=== PATIENT | male | born 1985 | race Caucasian/White ===

== ENCOUNTER 2019-06-26 13:26 | Emergency (ER) | payer MEDICARE, MEDICAID ==
--- OUTSIDE RECORDS SUMMARY | 2019-06-26 13:36 | XMS REPORT ---
:1985 Author Organization [facility] Care Team Providers Name Role Phone MCKAYLA JACKSON Primary Care Physician Unavailable Allergies, Adverse Reactions, Alerts Allergy Code CodeSystem Reaction Severity Criticality Status Start Substance Date Moderate Medications Medication Medication Medication Start Stop Route Dose Status Fill Code CodeSystem Date Date Instructions RxNorm Problems Problem Code CodeSystem Alternate Alternate Start End Status Narrative Name Code CodeSystem Date Date Bipolar 90114836 SNOMED-CT 2018-08 Active disorder, - in full remission , most recent episode manic Relevant diagnostic tests/laboratory data Narrative No Information Procedures Procedure Code CodeSystem Target Date of Status Service Device Device Device Name Site Procedure Delivery Code Name UID Location Comprehensiv 878343 SNOMED-CT () 2018-11-15 complete Mental e medication 0 d Health- services, [place] [address] [place], [place], [id number] Comprehensiv [id number] SNOMED-CT () 2018-12-28 complete Mental e medication 0 d Health- services, [place] [address] [place], [place], [id number] Comprehensiv 067970 SNOMED-CT () 2019-01-25 complete Mental e medication 0 d Health- services, [place] [address], [place], [id number] Comprehensiv 351852 SNOMED-CT () 2018-09-15 complete Mental e medication 0 d Health- services, [place] [address], [place], [id number] Comprehensiv 907986 SNOMED-CT () 2018-10-13 complete Mental e medication 0 d Health- services, [place] [address], [place], [id number] Comprehensiv 401730 SNOMED-CT () 2019-03-06 complete Mental e medication 0 d Health- services, [place] [address], [place], [id number] [id number] Comprehensiv 881416 SNOMED-CT () 2019-04-09 complete Mental e medication 0 d Health- services, [place] [address] [place], [place], [id number] [phone] Comprehensiv 588235 SNOMED-CT () 2019-05-23 complete Mental e medication 0 d Health- services, [place] [address], [place], [id number] [phone] [place] [id number] SNOMED-CT () 2019-03-06 complete Mental other 7 d Health- outpatient [place] visit for [address], [facility], established [phone] patient, [id number] which requires at least 2 of these 3 wang components: An expanded problem focused history; An expanded problem focused examination; Medical [facility] Office [facility] [id number] SNOMED-CT () 2018-11-17 complete Mental other 6 d Health- outpatient [place] visit for [address], [facility], established [phone] patient, [id number] which requires at least 2 of these 3 wang components: A problem focused history; A problem focused examination; [facility] medical decision making. Counselin Encounters/Encounter Diagnoses Encounter Name Encounter Diagnosis Diagnosis Diagnosis Date of Service Code Code Name CodeSystem Diagnosis Delivery Location [place] [id number] Bipolar SNOMED-CT 2019-05-23 Behavioral Medication disorder, Health Administration in full Clinic [address] with Monitoring & remission, [facility] most recent [address], episode [place], [place], manic [phone] Vital Signs No Information Social History Element Description Description Start End Code CodeSystem AdditionalInfo Date Date SexAssignedAtBirth Male 1986-0 M AdministrativeGender 4-14 Hospital Discharge Instructions Reason For Referral Medical Equipment FDA Assessments
--- NOTE | 2019-06-26 15:48 | UC ---
Dental HPI - HPI Summary HPI Summary: 33-year-old male presenting with toothache 2 days and left-sided facial swelling that he states began late this morning. Describes pain as aching and 4 /10. Denies any drainage or bleeding from gums. Denies decreased range of motion of jaw. Denies fevers. No chills. Denies changes in appetite and fluid intake. Denies nausea and vomiting. States he used Orajel and Tylenol yesterday without relief. Denies anything like this in the past. Does note cavities throughout his teeth. - History of Current Complaint Chief Complaint: UCDentalProblem Stated Complaint: GUM/FACIAL SWELLING Hx Obtained From: Patient Pain Intensity: 3 Pain Scale Used: 0-10 Numeric - Allergies/Home Medications Allergies/Adverse Reactions: Allergies Allergy/AdvReac Type Severity Reaction Status Date / Time mushroom Allergy Difficulty Verified 06/26/19 13:41 Swallowing Home Medications: Home Medications ARIPiprazole [Abilify Maintena] 1 dose IM MONTHLY 06/26/19 [History Confirmed ] PMH/Surg Hx/FS Hx/Imm Hx Psychological History: Bipolar Disorder - Surgical History Surgical History: Yes Surgery Procedure, Year, and Place: hernia repair, fx clavical - Family History Known Family History: Positive: Non-Contributory - Social History Alcohol Use: Occasionally Substance Use Type: Prescribed Substance Use Comment - Amount & Last Used: yesterday Smoking Status (MU): Heavy Every Day Tobacco Smoker Type: Cigarettes Household Exposure Type: Cigarettes - Immunization History Most Recent Influenza Vaccination: Unable to recall Most Recent Tetanus Shot: Unable to recall Most Recent Pneumonia Vaccination: NA Review of Systems All Other Systems Reviewed And Are Negative: Yes Constitutional: Positive: Chills. Negative: Fever Skin: Positive: Negative ENT: Positive: Dental Pain - Left upper gum and tooth pain Respiratory: Positive: Negative Cardiovascular: Positive: Negative Gastrointestinal: Positive: Negative. Negative: Vomiting, Nausea Musculoskeletal: Positive: Edema - L side facial swelling since this morning. Negative: Arthralgia, Decreased ROM Neurological: Positive: Negative Physical Exam Triage Information Reviewed: Yes Appearance: Well-Appearing, No Pain Distress, Well-Nourished Vital Signs: Initial Vital Signs Temp 96.2 F 06/26/19 13:38 Pulse 119 06/26/19 13:38 Resp 18 06/26/19 13:38 BP 141/93 06/26/19 13:38 Pulse Ox 98 06/26/19 13:38 Vital Signs Reviewed: Yes Eyes: Positive: Conjunctiva Clear ENT: Positive: Hearing grossly normal, Pharynx normal, TMs normal, Dental tenderness - left upper teeth, Uvula midline. Negative: Tonsillar swelling, Tonsillar exudate, Trismus, Muffled voice, Hoarse voice Dental: Positive: Percussion Tenderness @ - L upper teeth, Gross Decay/Caries @ - throughout, Cellulitis @ - upper and lower left gingiva. Negative: Cervical Lymphadenopathy, Bleeding Neck: Positive: Supple, Nontender, No Lymphadenopathy Respiratory Exam: Normal Respiratory: Positive: Lungs clear, Normal breath sounds, No respiratory distress Cardiovascular Exam: Other - regular rhythm Cardiovascular: Positive: Tachycardia Musculoskeletal: Positive: ROM Intact - full ROM mandible Neurological: Positive: Alert Psychological: Positive: Age Appropriate Behavior Skin Exam: Normal - erythema noted of L upper lip, cheek, extending to lower left eyelid Dental Complaint Course/Dx - Course Course Of Treatment: Patient presenting with L side toothache x2 days and facial swelling since this morning. Patient with significant facial swelling, dental tenderness, facial erythema, pain, and tachycardia. I instructed the patient to go to the emergency room for further evaluation and treatment. Patient voiced understanding and agreed with treatment plan. Patient states his friend is with him and will drive him there after leaving here. Patient stable upon departure. - Differential Dx/Diagnosis Differential Diagnosis/Dx: Dental Abscess, Dental Caries, Fractured Tooth, Odontogenic Pain Provider Diagnosis: Pain due to dental caries, Left facial swelling Discharge ED - Sign-Out/Discharge Documenting (check all that apply): Patient Departure All imaging exams completed and their final reports reviewed: No Studies - Discharge Plan Condition: Stable Disposition: HOME-RECOMMEND TO ED Patient Education Materials: Dental Abscess (ED) Referrals: Ousmane Felton MD [Primary Care Provider] - Additional Instructions: The provider that evaluated you today thinks that you need additional testing that can be completed the emergency department. It is recommended that you go directly to emergency department for further evaluation. This evaluation included blood work or imaging. This testing will be directed and decided by the provider that evaluates you at the emergency department. If pain becomes worse, you feel lightheaded, you have uncontrolled vomiting, or you have any other concerns while you are being driven to emergency department as recommended to pullover and contact 911. - Billing Disposition and Condition Condition: STABLE Disposition: Home-Recommend to ED - Attestation Statements Provider Attestation: I was available for consult. This patient was seen by the HUMBERTO. The patient was not presented to, seen by, or examined by me. -Karine
[2019-06-26 15:59] VITALS: BP 140/93
== END 2019-06-26 16:10 | disposition home health service (06) ==
LOC: UCEAST 13:26
DX: K08.89 Other specified disorders of teeth and supporting structures (principal); R22.0 Localized swelling, mass and lump, head; F31.9 Bipolar disorder, unspecified; F17.210 Nicotine dependence, cigarettes, uncomplicated; Z79.899 Other long term (current) drug therapy; Z91.018 Allergy to other foods; K02.9 Dental caries, unspecified; L03.211 Cellulitis of face
CPT/HCPCS: 99202; G0463

== ENCOUNTER 2019-06-26 16:21 | Emergency (ER) | payer MEDICARE, MEDICAID ==
[2019-06-26] MEDS ORDERED: NS 0.9% 1000 ML** 1,000 ML IV ONE (17:36)
[2019-06-26] MEDS ORDERED: Ketorolac INJ* 30 MG/ML 1 ML VIAL IV PUSH ONE (17:36)
[2019-06-26] MEDS ORDERED: Clindamycin 600 MG/D5W BAG(*) 600 MG/50 ML BAG IV ONE (17:36)
--- NOTE | 2019-06-26 17:50 | ED ---
Throat Pain/Nasal Congestion - HPI Summary HPI Summary: 33-year-old male presents with dental pain for the past 3 days. He states he woke up with swelling. swelling extends from left upper jaw to his eye. He denies any pain with eye movement. No fevers or chills. no difficulty swallowing. No chest pain or shortness of breath. He does not currently have a dentist. He states where it hurts is where his tooth has been removed. he has a history of Bipolar. Has been taking Tylenol for pain. - History of Current Complaint Chief Complaint: EDDentalPain Time Seen by Provider: 06/26/19 17:28 - Allergies/Home Medications Allergies/Adverse Reactions: Allergies Allergy/AdvReac Type Severity Reaction Status Date / Time mushroom Allergy Difficulty Verified 06/26/19 13:41 Swallowing PMH/Surg Hx/FS Hx/Imm Hx Endocrine/Hematology History: Denies: Hx Diabetes, Hx Thyroid Disease Cardiovascular History: Denies: Hx Hypertension Respiratory History: Denies: Hx Asthma, Hx Chronic Obstructive Pulmonary Disease (COPD) GI History: Denies: Hx Ulcer Sensory History: Reports: Hx Contacts or Glasses Opthamlomology History: Reports: Hx Contacts or Glasses Psychiatric History: Reports: Hx Inpatient Treatment, Hx Community Mental Health Tx, Hx Bipolar Disorder, Hx Substance Abuse Denies: Hx Eating Disorder, Hx of Violent Episodes Against Others - Surgical History Surgery Procedure, Year, and Place: hernia repair, fx clavical Infectious Disease History: No Infectious Disease History: Denies: Hx Hepatitis, Hx Human Immunodeficiency Virus (HIV), Traveled Outside the [place] in Last 30 Days - Family History Known Family History: Positive: Non-Contributory - Social History Alcohol Use: Occasionally Substance Use Type: Reports: Prescribed Substance Use Comment - Amount & Last Used: yesterday Smoking Status (MU): Heavy Every Day Tobacco Smoker Type: Cigarettes Review of Systems Negative: Fever Positive: Dental Pain Negative: Chest Pain Negative: Shortness Of Breath All Other Systems Reviewed And Are Negative: Yes Physical Exam Triage Information Reviewed: Yes Vital Signs On Initial Exam: Initial Vitals Temp Pulse Resp BP Pulse Ox 97.5 F 121 18 108/82 95 06/26/19 16:21 06/26/19 16:21 06/26/19 16:21 06/26/19 16:21 06/26/19 16:21 Vital Signs Reviewed: Yes Appearance: Positive: Well-Appearing Skin: Positive: Warm, Dry Eyes: Positive: Normal, EOMI, LOU, Conjunctiva Clear ENT: Positive: Pharynx normal, TMs normal Dental: Positive: Other - swelling noted to left side of face extending from mandibule to below the eye, erythema to gum left upper jaw Neck: Positive: Supple, Nontender, No Lymphadenopathy Respiratory/Lung Sounds: Positive: Clear to Auscultation, Breath Sounds Present Cardiovascular: Positive: Normal, RRR Abdomen Description: Positive: Nontender, Soft Bowel Sounds: Positive: Present Musculoskeletal: Positive: Normal Neurological: Positive: Normal Psychiatric: Positive: Normal Procedures - Sedation Patient Received Moderate/Deep Sedation with Procedure: No Diagnostics - Vital Signs Vital Signs Temp Pulse Resp BP Pulse Ox 06/26/19 16:21 97.5 F 121 18 108/82 95 - Laboratory Result Diagrams: 06/26/19 17:55 06/26/19 17:55 Lab Statement: Any lab studies that have been ordered have been reviewed, and results considered in the medical decision making process. - CT facial CT Interpretation Completed By: Radiologist Summary of CT Findings: IMPRESSION: 1. There is subcutaneous swelling and fat stranding involving the left face consistent with cellulitis, no visible soft tissue abscess. 2. There is mild left submandibular lymphadenopathy. 3. There is poor dentition with multiple missing teeth, multiple dental cavities and multifocal periodontal disease. Re-Evaluation - Re-Evaluation First Eval Re-Evaluation Time: 20:02 Change: Improved Comment: swelling decreased after toradol EENT Course/Dx - Course Course Of Treatment: 33-year-old male presents with dental pain for the past 3 days. He states he woke up with swelling. swelling extends from left upper jaw to his eye. He denies any pain with eye movement. No fevers or chills. no difficulty swallowing. No chest pain or shortness of breath. He does not currently have a dentist. He states where it hurts is where his tooth has been removed. he has a history of Bipolar. Has been taking Tylenol for pain. On exam has edema noted to left side of face from his jaw to his eye. Extraocular movements intact without pain. has erythema to left upper jaw. We'll get CT. CT shows cellulitis with no abscess. wbc normal. gave dose of clindamycin, will discharge on clindamycin. told follow up with dentist and primary. warned signs to return to ED such as pain with eye movement or if swelling is around entire eye. patient understand and agrees with plan. - Differential Diagnoses Differential Diagnoses: Dental Abscess, Dental Caries, Fractured Tooth - Diagnoses Provider Diagnoses: Facial cellulitis, Dental cavities Discharge ED - Sign-Out/Discharge Documenting (check all that apply): Patient Departure - Discharge Plan Condition: Good Disposition: HOME Prescriptions: Clindamycin Cap(NF) [Clindamycin Cap 300 mg Cap(NF)] 300 mg PO TID #29 cap Patient Education Materials: Cellulitis (ED) Referrals: Ousmane Felton MD [Primary Care Provider] - Additional Instructions: Take clindamycin three times a day for 10 days Take ibuprofen every 6 hours for pain as needed Avoid hard, crunchy food until seen by dentist follow up with primary within 5 days Establish care with dentist as soon as possible Return to ED if develop any new or worsening symptoms - Billing Disposition and Condition Condition: GOOD Disposition: Home
[2019-06-26 18:06] LABS: ABS Basophils 0.1 10^3/ul (0-0.2); ABS Eosinophils 0.1 10^3/ul (0-0.6); ABS Lymphocytes 1.8 10^3/ul (1.0-4.8); ABS Monocytes 0.9 10^3/ul (0-0.8); Eosinophil % 1.1 %; Hematocrit 51 % (42-52); Hemoglobin 17.2 g/dL (14.0-18.0); Mean Corpuscular HGB Conc 34 g/dL (31-36); Mean Corpuscular Hemoglobin 32 pg (27-31); Mean Corpuscular Volume 95 fL (80-94); Mean Platelet Volume 8.2 fL (7.4-10.4); Nucleated Red Blood Cells % 0.1; Platelet Count 196 10^3/uL (150-450); Red Blood Count 5.33 10^6 /uL (4.18-5.48); Red Cell Distribution Width 14 % (10-15); White Blood Count 9.9 10^3/uL (3.5-10.8)
[2019-06-26 18:27] LABS: Albumin 4.5 g/dL (3.2-5.2); Albumin/Globulin Ratio 1.5 (1-3); BUN/Creatinine Ratio 14.6 (8-20); Calcium 9.7 mg/dL (8.6-10.3); EGFR African American 120.6 (>60); EGFR Non-African American 99.7 (>60); Globulin 3.1 g/dL (2-4); Potassium 3.8 mmol/L (3.5-5.0); Total Bilirubin 0.9 mg/dL (0.2-1.0); Total Protein 7.6 g/dL (6.4-8.9)
[2019-06-26] MEDS ORDERED: Iohexol 300* (CONTRAST) 10 ML SDV IV ONE (19:05)
[2019-06-26 20:27] VITALS: BP 125/84
== END 2019-06-26 20:24 | disposition home or self-care (01) ==
LOC: ED 16:21
DX: K02.9 Dental caries, unspecified (principal); L03.211 Cellulitis of face
CPT/HCPCS: 36415; 70487; 80053; 83605; 85025; 87040; 96361; 96365; 96375; 99282; J1885; Q9967

== ENCOUNTER 2023-09-17 16:55 | Inpatient (IN) ==
[2023-09-17] MEDS ORDERED: Albuterol HFA INHALER 8 gm MDI INH ONE (17:18)
[2023-09-17] MEDS: Albuterol HFA INHALER 8 gm MDI INH ONE (17:22)
[2023-09-17] MEDS: Magnesium Sulfate 2 gm BAG 2 GM/50 ML BAG IVPB ONE (17:41)
[2023-09-17] MEDS: methylPREDNISolone SOD SUCC 125 mg 2 ML VIAL IV ONE (17:41)
[2023-09-17 17:46] LABS: ABS Basophils 0.1 10^3/uL (0.0-0.1); ABS Lymphocytes 1.7 10^3/uL (1.0-4.8); ABS Monocytes 1.1 10^3/uL (0.0-1.1); ABS Neutrophils 7.1 10^3/uL (1.5-7.6); ABS Nucleated RBC 0.12 10^3/ul; Eosinophil % 0.1 %; Hematocrit 51.9 % (38-53); Lymphocyte % 17.1 %; Mean Corpuscular Hemoglobin 32.7 pg (27-33); Mean Corpuscular Hgb Conc 32.7 g/dL (31-36); Mean Platelet Volume 8.9 fL (7.5-11.2); Nucleated Red Blood Cells % 1.2 %/100WBC (0.0-0.8); Platelet Count 155 10^3/uL (150-450); Red Blood Count 5.19 10^6/uL (4.06-5.63); Red Cell Distribution Width 15.9 % (12-17)
[2023-09-17 17:57] LABS: INR 1.29 (0.83-1.13)
[2023-09-17 18:27] LABS: Albumin 3.6 g/dL (3.2-5.2); Albumin/Globulin Ratio 1.7 (1-3); C Reactive Protein 39.4 mg/L (<8.01); Calcium 8.3 mg/dL (8.6-10.3); Creatinine, Serum 0.83 mg/dL (0.67-1.17); Globulin 2.1 g/dL (2-4); Potassium 4.8 mmol/L (3.5-5.0); Total Bilirubin 1.2 mg/dL (0.2-1.0); Total Protein 5.7 g/dL (6.4-8.9); eGFR CKD-EPI 117.1 (>60)
[2023-09-17] MEDS: Albuterol/Ipratropium NEB.SOL (2.5/0.5 MG) 3 ML NEB.SOLN INH ONE (18:28)
[2023-09-17] MEDS: Iohexol 350 (CONTRAST) 500 ML MDV IV ONE (18:50)
[2023-09-17 19:10] LABS: Venous Bicarbonate HCO3 32.9 mmol/L (24-28)
[2023-09-17 19:35] LABS: High Sensitivity Troponin 1 Hr 24 pg/mL (<20)
[2023-09-17] MEDS ORDERED: Ondansetron 4 mg VIAL 2 MG/ML 2 ml VIAL IV PRN (20:40)
[2023-09-17] MEDS: Heparin DRIP 25,000 UNITS BAG 25,000 UNITS/250 ML BAG IV SCH (21:09)
[2023-09-17] MEDS: Heparin 5000 UNITS/ML 1 mL VIAL IV SCH (21:10)
[2023-09-17] MEDS: Furosemide 20 mg/2 ml IV VIAL IV SLOW PU ONE (21:12)
[2023-09-17 21:34] LABS: PCO2 Arterial 69 mmHg (35-45); PO2 Arterial 99 mmHg (80-100)
[2023-09-18] MEDS: Metoprolol Tartrate 5 mg VIAL 5 ml VIAL (1 mg/ml) IV ONE (02:38)
[2023-09-18] MEDS: Metoprolol Tartrate 5 mg VIAL 5 ml VIAL (1 mg/ml) ONE (02:44)
[2023-09-18 04:38] LABS: ABS Lymphocytes 0.5 10^3/uL (1.0-4.8); ABS Monocytes 0.2 10^3/uL (0.0-1.1); ABS Neutrophils 7.8 10^3/uL (1.5-7.6); ABS Nucleated RBC 0.05 10^3/ul; Eosinophil % 0.1 %; Hematocrit 51.8 % (38-53); Lymphocyte % 5.4 %; Mean Corpuscular Hemoglobin 32.7 pg (27-33); Mean Corpuscular Hgb Conc 32.9 g/dL (31-36); Mean Corpuscular Volume 99.4 fL (80-97); Mean Platelet Volume 8.8 fL (7.5-11.2); Nucleated Red Blood Cells % 0.6 %/100WBC (0.0-0.8); Platelet Count 162 10^3/uL (150-450); Red Blood Count 5.21 10^6/uL (4.06-5.63); Red Cell Distribution Width 15.8 % (12-17); White Blood Count 8.5 10^3/uL (3.6-10.2)
[2023-09-18 05:25] LABS: Anion Gap 2 mmol/L (2-16); Blood Urea Nitrogen 18 mg/dL (6-24); CO2 Carbon Dioxide 44 mmol/L (22-32); Calcium 8.3 mg/dL (8.6-10.3); Chloride 90 mmol/L (101-111); Creatinine, Serum 0.74 mg/dL (0.67-1.17); Glucose 143 mg/dL (70-100); Magnesium 2.3 mg/dL (1.9-2.7); Sodium 136 mmol/L (135-145); eGFR CKD-EPI 121.2 (>60)
[2023-09-19 06:04] LABS: ABS Basophils 0.1 10^3/uL (0.0-0.1); ABS Lymphocytes 1.7 10^3/uL (1.0-4.8); ABS Nucleated RBC 0.03 10^3/ul; Eosinophil % 0.3 %; Hematocrit 49.4 % (38-53); Hemoglobin 16.1 g/dL (13.2-16.3); Mean Corpuscular Hemoglobin 32.7 pg (27-33); Mean Corpuscular Hgb Conc 32.5 g/dL (31-36); Mean Corpuscular Volume 100.5 fL (80-97); Nucleated Red Blood Cells % 0.3 %/100WBC (0.0-0.8); Platelet Count Platelets clumped. 10^3/uL (150-450); Red Blood Count 4.92 10^6/uL (4.06-5.63); Red Cell Distribution Width 16.1 % (12-17); White Blood Count 10.8 10^3/uL (3.6-10.2)
[2023-09-19 06:58] LABS: Calcium 8.1 mg/dL (8.6-10.3); Creatinine, Serum 0.71 mg/dL (0.67-1.17); Magnesium 2.2 mg/dL (1.9-2.7); Potassium 5.3 mmol/L (3.5-5.0); eGFR CKD-EPI 122.7 (>60)
[2023-09-19] MEDS: Albuterol/Ipratropium NEB.SOL (2.5/0.5 MG) 3 ML NEB.SOLN INH ONE (11:02)
[2023-09-19] MEDS ORDERED: Albuterol/Ipratropium NEB.SOL (2.5/0.5 MG) 3 ML NEB.SOLN INH SCH (14:00)
[2023-09-19] MEDS: Furosemide 40 mg/4 ml IV VIAL IV SLOW PU ONE (14:27)
[2023-09-20 04:58] LABS: ABS Lymphocytes 0.9 10^3/uL (1.0-4.8); ABS Monocytes 0.6 10^3/uL (0.0-1.1); ABS Neutrophils 5.9 10^3/uL (1.5-7.6); ABS Nucleated RBC 0.01 10^3/ul; Hematocrit 47.1 % (38-53); Hemoglobin 15.2 g/dL (13.2-16.3); Lymphocyte % 11.7 %; Mean Corpuscular Hemoglobin 32.6 pg (27-33); Mean Corpuscular Hgb Conc 32.3 g/dL (31-36); Mean Corpuscular Volume 100.8 fL (80-97); Mean Platelet Volume 8.7 fL (7.5-11.2); Nucleated Red Blood Cells % 0.1 %/100WBC (0.0-0.8); Platelet Count 157 10^3/uL (150-450); Red Blood Count 4.67 10^6/uL (4.06-5.63); Red Cell Distribution Width 15.9 % (12-17); White Blood Count 7.4 10^3/uL (3.6-10.2)
[2023-09-20 06:02] LABS: ALT 95 U/L (7-52); Albumin 3.6 g/dL (3.2-5.2); Albumin/Globulin Ratio 1.7 (1-3); Alkaline Phosphatase 77 U/L (35-149); Blood Urea Nitrogen 14 mg/dL (6-24); CO2 Carbon Dioxide > 45 mmol/L (22-32); Calcium 8.4 mg/dL (8.6-10.3); Chloride 90 mmol/L (101-111); Creatinine, Serum 0.57 mg/dL (0.67-1.17); Globulin 2.1 g/dL (2-4); Glucose 108 mg/dL (70-100); Sodium 136 mmol/L (135-145); Total Bilirubin 0.6 mg/dL (0.2-1.0); Total Protein 5.7 g/dL (6.4-8.9); eGFR CKD-EPI 131.1 (>60)
[2023-09-20 08:35] LABS: Magnesium 2.2 mg/dL (1.9-2.7); Phosphorus 3.3 mg/dL (2.5-5.0); Potassium Redraw 4.7 mmol/L (3.5-5.0)
[2023-09-20] MEDS: Albuterol/Ipratropium NEB.SOL (2.5/0.5 MG) 3 ML NEB.SOLN INH PRN (10:08)
[2023-09-20 10:12] LABS: PO2 Arterial 74 mmHg (80-100)
[2023-09-20 10:14] LABS: PCO2 Arterial 87 mmHg (35-45)
[2023-09-21 08:45] LABS: PO2 Arterial 60 mmHg (80-100)
[2023-09-21 08:54] LABS: PCO2 Arterial 75 mmHg (35-45)
[2023-09-21] MEDS: Nystatin TOP POWDER 15 GM BTL TOPICAL SCH (11:39)
[2023-09-22] MEDS: ARIPIPRAZOLE 300 MG IM SCH (21:18)
[2023-09-25 06:30] LABS: ABS Lymphocytes 2.3 10^3/uL (1.0-4.8); ABS Monocytes 0.8 10^3/uL (0.0-1.1); ABS Neutrophils 4.8 10^3/uL (1.5-7.6); ABS Nucleated RBC 0.01 10^3/ul; Eosinophil % 0.5 %; Hematocrit 51.2 % (38-53); Hemoglobin 16.2 g/dL (13.2-16.3); Lymphocyte % 28.5 %; Mean Corpuscular Hemoglobin 32.3 pg (27-33); Mean Corpuscular Hgb Conc 31.8 g/dL (31-36); Mean Corpuscular Volume 101.7 fL (80-97); Nucleated Red Blood Cells % 0.1 %/100WBC (0.0-0.8); Platelet Count 186 10^3/uL (150-450); Red Blood Count 5.03 10^6/uL (4.06-5.63); White Blood Count 7.9 10^3/uL (3.6-10.2)
[2023-09-25 06:52] LABS: Albumin 3.8 g/dL (3.2-5.2); Albumin/Globulin Ratio 1.8 (1-3); Calcium 8.8 mg/dL (8.6-10.3); Creatinine, Serum 0.8 mg/dL (0.67-1.17); Globulin 2.1 g/dL (2-4); Potassium 4.8 mmol/L (3.5-5.0); Total Bilirubin 0.5 mg/dL (0.2-1.0); Total Protein 5.9 g/dL (6.4-8.9); eGFR CKD-EPI 117.6 (>60)
[2023-09-26 06:47] LABS: Albumin 3.9 g/dL (3.2-5.2); Creatinine, Serum 0.75 mg/dL (0.67-1.17); Potassium 4.4 mmol/L (3.5-5.0); Total Bilirubin 0.3 mg/dL (0.2-1.0); Total Protein 5.9 g/dL (6.4-8.9); eGFR CKD-EPI 119.9 (>60)
[2023-09-26 07:12] LABS: Folate 12.54 ng/mL (5.90-24.80)
[2023-09-26] MEDS: Mometasone/Formoter 100/5 MDI INH SCH (13:33)
[2023-09-30 11:09] VITALS: BP 156/100
== END 2023-09-30 11:25 | disposition home or self-care (01) | DRG 175 ==
LOC: ED 16:55 → EDHOLD 20:40 → SUATTDRO 20:40 → ICU 21:02 → MED 09-19 21:21
PROVIDERS: ADMIT Student in an Organized Health Care Education/Training Program; ATTEND Internal Medicine